=== PATIENT | female | born 1950 | race Caucasian/White ===

== ENCOUNTER → 2019-05-30 08:52 | Outpatient (BNVA) | payer MEDICARE, SELFPAY | PROVIDERS: Family Provider Family Medicine; PCP Family Medicine; Referring Provider Family Medicine; Visit Provider Internal Medicine Rheumatology | DX: M19.90 Unspecified osteoarthritis, unspecified site (principal); Z11.59 Encounter for screening for other viral diseases; Z79.899 Other long term (current) drug therapy; Z11.1 Encounter for screening for respiratory tuberculosis; L60.8 Other nail disorders; Z84.0 Family history of diseases of the skin and subcutaneous tissue; M65.9 Synovitis and tenosynovitis, unspecified; Z72.89 Other problems related to lifestyle | CPT/HCPCS: 86480; 86812; 99204 ==

== ENCOUNTER → 2019-05-30 10:34 | Outpatient (BNVA) | payer MEDICARE, SELFPAY | PROVIDERS: Family Provider Family Medicine; PCP Family Medicine; Referring Provider Family Medicine; Visit Provider Internal Medicine Rheumatology | DX: M19.90 Unspecified osteoarthritis, unspecified site (principal); Z11.59 Encounter for screening for other viral diseases; Z79.899 Other long term (current) drug therapy; L60.8 Other nail disorders; Z84.0 Family history of diseases of the skin and subcutaneous tissue; M65.9 Synovitis and tenosynovitis, unspecified | CPT/HCPCS: 85025 ==

== ENCOUNTER 2019-05-30 11:12 | Outpatient (CLI) | payer MEDICARE, SELFPAY ==
--- NOTE | 2019-05-30 11:18 | XR_ITS ---
WS: [id number] CHEST 2 VIEWS HISTORY: inflammatory arthritis, unspecified osteoarthritis COMPARISON: None available. Lungs: Clear with no abnormality. No pleural effusion or pneumothorax. Cardiac size: Mildly enlarged cardiac silhouette. Mediastinum/Aorta: Mild atherosclerosis aorta. Partially calcified aorta. Bones: Mild osteopenia with increase in thoracic kyphosis. XR/XR chest 2V* [id number] IMPRESSION: Mild cardiomegaly and partially calcified aorta.
== END 2019-05-30 11:13 | disposition home or self-care (01) ==
LOC: RADWPI 11:15
PROVIDERS: Family Provider Family Medicine; PCP Family Medicine; Visit Provider Internal Medicine Rheumatology
DX: Z11.59 Encounter for screening for other viral diseases (principal); M19.90 Unspecified osteoarthritis, unspecified site; I51.7 Cardiomegaly; I70.0 Atherosclerosis of aorta; Z79.899 Other long term (current) drug therapy; Z11.1 Encounter for screening for respiratory tuberculosis; L60.8 Other nail disorders; Z84.0 Family history of diseases of the skin and subcutaneous tissue; M65.9 Synovitis and tenosynovitis, unspecified; Z72.89 Other problems related to lifestyle
CPT/HCPCS: 71046; 80076; 82306; 82565; 85651; 86140; 86704; 86803; 87340

== ENCOUNTER → 2019-06-09 11:57 | Outpatient (BNVA) | payer MEDICARE, SELFPAY | PROVIDERS: Family Provider Family Medicine; PCP Family Medicine; Visit Provider Internal Medicine Rheumatology | DX: L40.59 Other psoriatic arthropathy (principal); Z79.899 Other long term (current) drug therapy; M05.9 Rheumatoid arthritis with rheumatoid factor, unspecified; B35.1 Tinea unguium | CPT/HCPCS: 99214 ==

== ENCOUNTER → 2019-07-11 11:00 | Outpatient (BNVA) | payer MEDICARE, SELFPAY | PROVIDERS: Family Provider Family Medicine; PCP Family Medicine; Visit Provider Internal Medicine Rheumatology | DX: Z79.899 Other long term (current) drug therapy (principal) | CPT/HCPCS: 36415; 80076; 82565; 85025; 86140 ==

== ENCOUNTER → 2019-07-11 11:07 | Outpatient (BNVA) | payer MEDICARE, SELFPAY | PROVIDERS: Family Provider Family Medicine; PCP Family Medicine; Visit Provider Internal Medicine Rheumatology | DX: Z79.899 Other long term (current) drug therapy (principal) | CPT/HCPCS: 85025 ==

== ENCOUNTER → 2019-08-03 13:58 | Outpatient (BNVA) | payer MEDICARE, SELFPAY | PROVIDERS: Family Provider Family Medicine; PCP Family Medicine; Visit Provider Internal Medicine Rheumatology | DX: Z79.899 Other long term (current) drug therapy (principal); M19.90 Unspecified osteoarthritis, unspecified site | CPT/HCPCS: 36415; 80076; 82565; 85025; 85651; 86140 ==

== ENCOUNTER → 2019-09-07 13:50 | Outpatient (BNVA) | payer MEDICARE, SELFPAY | PROVIDERS: Family Provider Family Medicine; PCP Family Medicine; Visit Provider Internal Medicine Rheumatology | DX: Z79.899 Other long term (current) drug therapy (principal) | CPT/HCPCS: 36415; 80076; 82565; 85025; 85651; 86140 ==

== ENCOUNTER 2019-10-24 08:20 | Outpatient (CLI) | payer MEDICARE, SELFPAY ==
--- NOTE | 2019-10-24 08:26 | MR_ITS ---
WS: [id number] MRI LUMBAR SPINE NONCONTRAST HISTORY: LUMBAR SPINE INSTABILITY, CHRONIC LOW BACK PAIN COMPARISON: 10/03/2019 TECHNIQUE: Sagittal and axial multisequence imaging is submitted. Mild increase in thoracic kyphosis. Mild cervical stenosis at C5-6. L5 anterolisthesis by 6.6 mm with unroofing of the disc. Bilateral pars defects are present. Disc spa ce narrowing at L5-S1 is asymmetric with the posterior disc space more significantly narrowed than an teriorly. The remaining disc spaces and vertebral body heights are maintained. Conus terminates normally at L1. L1-L2: Mild annular disc bulging with a LEFT paracentral small disc protrusion causing mild deformity of the thecal sac. Mild LEFT facet joint arthritis. L2-L3: Mild annular disc bulging with no significant stenosis. Slight deformity of the LEFT lateral t hecal sac is probably due to epidural fat. L3-L4: Mild facet joint arthritis. No stenosis. Small amount of fluid in the facet joints bilaterally . L4-L5: Mild annular disc bulging with facet joint arthritis. Ligamentum flavum disease and facet join t arthropathy. Fluid in the facet joints bilaterally. Mild central and LEFT subarticular recess steno sis. L5-S1: Unroofing of the disc with severe facet joint arthritis. Moderate central, subarticular and bi lateral foraminal stenosis. Paravertebral soft tissues are normal. MR/MR lumbar spine wo con* [id number] IMPRESSION: 1. Grade 1 anterolisthesis of L5 on S1 with spondylolysis. 6.6 mm anterolisthe sis of L5 with asymmetric disc space narrowing. 2. Moderate central, subarticular recess and bilateral foraminal stenosis at L 5-S1. 3. Mild central and LEFT subarticular recess stenosis at L4-5 predominantly du e to facet disease. 4. Small LEFT paracentral disc protrusion at L1-2.
== END 2019-10-24 08:21 | disposition home or self-care (01) ==
LOC: RADSHAW 08:24
PROVIDERS: PCP Family Medicine; Visit Provider Family Medicine
DX: M53.2X6 Spinal instabilities, lumbar region (principal); G89.29 Other chronic pain; M47.817 Spondylosis without myelopathy or radiculopathy, lumbosacral region; M48.07 Spinal stenosis, lumbosacral region; M51.26 Other intervertebral disc displacement, lumbar region; M48.061 Spinal stenosis, lumbar region without neurogenic claudication
CPT/HCPCS: 72148

== ENCOUNTER → 2019-10-26 11:56 | Outpatient (BNVA) | payer MEDICARE, SELFPAY | PROVIDERS: PCP Family Medicine; Visit Provider Internal Medicine Rheumatology | DX: L40.50 Arthropathic psoriasis, unspecified (principal); Z79.899 Other long term (current) drug therapy; L60.8 Other nail disorders; M65.9 Synovitis and tenosynovitis, unspecified; Z84.0 Family history of diseases of the skin and subcutaneous tissue; M54.5 Low back pain | CPT/HCPCS: 99214 ==

== ENCOUNTER 2020-11-20 09:25 | Emergency (ER) | payer MEDICARE, SELFPAY ==
[2020-11-20] VITALS (58 sets, daily range): BP systolic 144–206; BP diastolic 85–111; PULSE 86–127; RESP 10–26; TEMP 37; O2SAT 90–100
--- NOTE | 2020-11-20 10:25 | W.ED.NAVMDI ---
HPI - Nausea/Vomiting/Diarrhea General: Chief complaint: Nausea/Vomiting/Diarrhea Stated complaint: N/V POST BACK SURGERY Time Seen by Provider: 11/20/20 09:31 History of Present Illness: HPI Narrative: 70-year-old male presents to the emergency room with complaints of nausea and vomiting. She had a lumbar surgery about 10 days ago that was done at [facility]. She had seen Dr. Valdes for her surgery. Since her surgery she is had nausea and vomiting states she is just generally felt weak she is not been able to participate in any of the home exercises she was given. She is requesting to be admitted to the intermediate from the ER. She denies any fever sweats chills she is not had any urinary retention she is continue to have daily stools although somewhat loose no diarrhea no hematochezia. She is not had any drainage from the wound that she is aware of. MD elicited complaint: nausea and vomiting Onset (ago): day(s) Description of vomiting: food contents and watery Associated nausea: Yes Associated abdominal pain: No Exacerbating factors: none Relieving factors: none Associated symtoms: Reports anxiety, fatigue, anorexia, malaise, myalgias, nausea and weakness; Denies altered mental status, bloating, change in vision, chest pain, cough, diaphoresis, decreased urine output, dizziness, dysuria, epistaxis, fecal incontinence, fevers/chills, headache(s), numbness, palpitations, rash, short of breath, syncope, tenesmus or tinnitus Review of Systems Const: Reports: fatigue and malaise; Denies: diaphoresis Eyes: Denies: change in vision ENMT: Denies: tinnitus or epistaxis Card: Denies: chest pain, palpitations or syncope Resp: Denies: dyspnea, productive cough or non-productive cough GI: Reports: nausea; Denies: bloating or fecal incontinence : Denies: dysuria Skin/Breast: Denies: rash or pruritus Neuro: Denies: headache(s) or dizziness Psych: Reports: anxiety PFSH ED PFSH: Medical History Change in nail appearance Diabetes mellitus Encounter for screening for other viral diseases Family history of psoriasis High risk medication use Hyperlipidemia Hypertension Inflammatory arthritis Osteoporosis Psoriatic arthritis Tenosynovitis Type 2 diabetes mellitus Surgical History H/O hemorrhoidectomy History of hand surgery left History of tubal ligation Family History Sister Merary Denies family history of Rheumatoid arthritis Lupus Social History Smoking and tobacco status: never smoked Alcohol intake: never History of recent travel: No Physical Exam Const: COMMON NORMALS: no acute distress EXAM LIMITATIONS: no altered mental status GENERAL APPEARANCE: cooperative and comfortable ORIENTATION/CONSCIOUSNESS: Yes awake, Yes oriented to person, Yes oriented to place and Yes oriented to time HENMT: COMMON NORMALS: normocephalic, atraumatic and hearing grossly normal bilaterally HEAD & SCALP: normocephalic and atraumatic Neck/C-Spine: COMMON NORMALS: no JVD Resp: COMMON NORMALS: normal respiratory effort, No retractions, No use of accessory muscles and clear to auscultation bilaterally AUSCULTATION: clear to auscultation bilaterally Cardio: COMMON NORMALS: no JVD, regular rate, regular rhythm and No murmurs present (Cardio) RATE: regular rate RHYTHM: regular rhythm GI: COMMON NORMALS: Soft to palpation and No hepatosplenomegaly present AUSCULTATION: Yes normoactive bowel sounds PALPATION: Yes Soft to palpation, No Tenderness to palpation present (GI), No Guarding due to palpation present (GI) and Yes No hepatosplenomegaly present Extremity: COMMON NORMALS: normal to inspection, capillary refill normal, no clubbing, cyanosis or edema, no calf tenderness and no pedal edema Neuro: SENSORIUM/ORIENTATION: Yes oriented to person, Yes oriented to place and Yes oriented to time Skin: COMMON NORMALS: no rashes or lesions noted GENERAL SKIN EXAM: no rashes or lesions noted Course Vital Signs: Vital signs: Vital Signs Temperature 98.6 F 11/20/20 09:30 Pulse Rate 110 H 11/20/20 17:48 Respiratory Rate 16 11/20/20 17:48 Blood Pressure 163/93 11/20/20 16:25 Pulse Oximetry 91 11/20/20 16:25 MDM - Nausea/Vomiting/Diarrhea MDM Narrative: Medical decision making narrative: Patient reported one episode of vomiting however nurse was unaware of it, and not reported to the nurse. She did have significant hypokalemia we are trying to replace that. Did have physical therapy come down and had difficulty getting her up and moving we discussed different options patient wanted us to admit her directly to the intermediate due to the pandemic that is not possible. Reviewed other options but ultimately she prefers to just go home. I had asked her to stay a little longer to ensure that we get her potassium in place she declined and wanted to leave. She also had pretty significant hypertension while she was here did improve the medications we gave we added amlodipine additionally we will start her on supplemental potassium given promethazine use at home she has worsening symptoms return. She did not have any urinary retention or fecal incontinence. Bladder scan was unremarkable. She does have sensation in movement without any radiculopathy to her lower extremities most of her pain is confined to her back and somewhat to the left hip per her report. Lab Data: Labs: Lab Results 11/20/20 11/20/20 11/20/20 Range/Units 10:33 10:43 10:43 WBC 9.9 (4.0-10.0) 10^3/ uL RBC 4.42 (4.1-5.3) 10^6/u L Hgb 12.4 (11.5-15.3) g/dL Hct 39.3 (37.0-47.0) % MCV 88.9 (81-99) fL MCH 28.1 (28.0-34.0) pg MCHC 31.6 (30.0-36.0) g/dL RDW 14.0 (12.1-15.1) % Plt Count 462 H (130-400) 10^3/c mm MPV 8.7 (7.4-10.4) fL Neut % (Auto) 83.2 % Lymph % (Auto) 11.2 % [place] % (Auto) 4.2 % Eos % (Auto) 0.4 % Baso % (Auto) 0.6 % Neut # (Auto) 8.22 H (1.8-7.7) 10^3/u L Lymph # (Auto) 1.1 (0.8-4.8) 10^3/u L [place] # (Auto) 0.4 (0.2-0.9) 10^3/u L Eos # (Auto) 0.0 (0.0-0.8) 10^3/u L Baso # (Auto) 0.1 (0.0-0.1) 10^3/u L Nucleated RBC % (a uto) 0 % Nucleated RBCs # 0.0 /100WBC Specimen Type Sample Site ABG pH (7.35-7.45) ABG pCO2 (35-45) mmHg ABG pO2 (80.0-100.0) mmH g ABG HCO3 (22-26) mmol/L ABG O2 Saturation ABG Base Excess (-2.0-2.0) mmol/ L Fam Test A-a O2 Gradient (5-10) mmHg Hematocrit (37-47) % Hgb O2 Saturation (95-100) % Carboxyhemoglobin (0.4-20.1) %THgb Methemoglobin (0.4-1.5) % Total Hemoglobin (12-16) g/dL Ionized Calcium (1.1-1.4) mmol/L O2 Delivery Device O2 Liters/Min % FiO2 % Manager Eligibility ID Sodium 146 H (136-145) mmol/L Potassium 2.4 L* (3.5-5.1) mmol/L Chloride 96 L (98-107) mmol/L Carbon Dioxide 35 H (22-29) mmol/L Anion Gap 17.4 (5-19) BUN 7 L (8-23) mg/dL Creatinine 0.6 (0.5-0.9) mg/dL GFR Calculation Not Reportable Glucose 122 H (65-115) mg/dL Calculated Osmolal ity 301 H (285-295) mOsm/k g Calcium 8.6 (8.5-10.5) mg/dL Total Bilirubin 0.6 (0.15-1.2) mg/dL AST 15 (0-32) U/L ALT 10 (0-33) U/L Alkaline Phosphata se 146 H (35-105) IU/L Total Protein 7.5 (6.6-8.7) g/dL Albumin 3.7 (3.5-5.2) g/dL Globulin 3.8 (1.3-4.6) g/dL Urine Color Yellow (Yellow) Urine Appearance Sl hazy (CLEAR) Urine pH 6.5 (5-7) Ur Specific Gravit y 1.015 (1.005-1.030) Urine Protein Neg (Negative) Urine Glucose (UA) Norm (Normal) Urine Ketones 2+ H (Negative) Urine Blood 3+ H (Negative) Urine Nitrate Negative (Negative) Urine Bilirubin Neg (Negative) Urine Urobilinogen 4 H (Negative) mg/dL Ur Leukocyte Judith ase Negative (Negative) Urine RBC 10-15 H (0-2) /hpf Urine WBC 0-4 H (0-5) /hpf Ur Squamous Epith Cells 15-25 H (0-5) /hpf Amorphous Sediment Not Reportable Urine Bacteria 1+ H (NONE) /hpf 11/20/20 11/20/20 Range/Units 11:27 12:53 WBC (4.0-10.0) 10^3/ uL RBC (4.1-5.3) 10^6/u L Hgb (11.5-15.3) g/dL Hct (37.0-47.0) % MCV (81-99) fL MCH (28.0-34.0) pg MCHC (30.0-36.0) g/dL RDW (12.1-15.1) % Plt Count (130-400) 10^3/c mm MPV (7.4-10.4) fL Neut % (Auto) % Lymph % (Auto) % [place] % (Auto) % Eos % (Auto) % Baso % (Auto) % Neut # (Auto) (1.8-7.7) 10^3/u L Lymph # (Auto) (0.8-4.8) 10^3/u L [place] # (Auto) (0.2-0.9) 10^3/u L Eos # (Auto) (0.0-0.8) 10^3/u L Baso # (Auto) (0.0-0.1) 10^3/u L Nucleated RBC % (a uto) % Nucleated RBCs # /100WBC Specimen Type Arterial Sample Site Radial, right ABG pH 7.48 H (7.35-7.45) ABG pCO2 51.3 H (35-45) mmHg ABG pO2 78.9 L (80.0-100.0) mmH g ABG HCO3 38.4 H (22-26) mmol/L ABG O2 Saturation 96.5 ABG Base Excess 12.9 H (-2.0-2.0) mmol/ L Fam Test Pos A-a O2 Gradient 11.3 H (5-10) mmHg Hematocrit 39.1 (37-47) % Hgb O2 Saturation 94.3 L (95-100) % Carboxyhemoglobin 1.4 (0.4-20.1) %THgb Methemoglobin 0.9 (0.4-1.5) % Total Hemoglobin 12.7 (12-16) g/dL Ionized Calcium 1.2 (1.1-1.4) mmol/L O2 Delivery Device Nc O2 Liters/Min 3.0 % FiO2 32.0 % Manager Eligibility ID Amh Sodium 144.0 H (136-145) mmol/L Potassium 2.1 L 2.9 L D (3.5-5.1) mmol/L Chloride (98-107) mmol/L Carbon Dioxide (22-29) mmol/L Anion Gap (5-19) BUN (8-23) mg/dL Creatinine (0.5-0.9) mg/dL GFR Calculation Glucose 128.0 H (65-115) mg/dL Calculated Osmolal ity (285-295) mOsm/k g Calcium (8.5-10.5) mg/dL Total Bilirubin (0.15-1.2) mg/dL AST (0-32) U/L ALT (0-33) U/L Alkaline Phosphata se (35-105) IU/L Total Protein (6.6-8.7) g/dL Albumin (3.5-5.2) g/dL Globulin (1.3-4.6) g/dL Urine Color (Yellow) Urine Appearance (CLEAR) Urine pH (5-7) Ur Specific Gravit y (1.005-1.030) Urine Protein (Negative) Urine Glucose (UA) (Normal) Urine Ketones (Negative) Urine Blood (Negative) Urine Nitrate (Negative) Urine Bilirubin (Negative) Urine Urobilinogen (Negative) mg/dL Ur Leukocyte Judith ase (Negative) Urine RBC (0-2) /hpf Urine WBC (0-5) /hpf Ur Squamous Epith Cells (0-5) /hpf Amorphous Sediment Urine Bacteria (NONE) /hpf Discharge Plan Discharge Patient Disposition: Home Clinical Impression: Nausea & vomiting, HTN (hypertension), Hypokalemia Condition: Stable Prescriptions: New amlodipine 10 mg tablet 10 mg PO DAILY Qty: 30 RF: 0 potassium chloride 20 mEq tablet extended release 20 meq PO TID Qty: 30 RF: 0 promethazine 25 mg tablet 25 mg PO Q6H PRN (Reason: nausea and vomiting) Qty: 20 RF: 0 No Action Excedrin Extra Strength 250-250-65 mg tablet 2 tab PO PRN RF: 0 ondansetron HCl 8 mg tablet 8 mg PO Q8H PRN (Reason: Nausea And Vomiting) RF: 0 Trulicity 0.75 mg/0.5 mL pen injector 0.75 mg SUBCUT Q7D RF: 0 Kylah-maritza 8.6 mg tablet 8.6 mg PO BID RF: 0 methocarbamol 750 mg tablet 1,500 mg PO TID PRN (Reason: Muscle Spasm) RF: 0 docusate sodium 100 mg capsule 100 mg PO BID RF: 0 irbesartan 300 mg tablet 300 mg PO BEDTIME RF: 0 oxycodone 5 mg tablet 5 mg PO Q4H PRN (Reason: Pain) RF: 0 Discharge Orders: Discharge ED (Routine); Ordered 11/20/20 Ordered By: Juan Manuel Stout Referrals: Derek Fierro MD [Primary Care Provider] - Discharge Diet: Clear Liquid Discharge Activity: Increase activity as tolerated Patient Instructions: Opioid Safety Activity Restrictions/Additional Instructions: sql manager will make arrangements for home health evaluation. Follow-up with your primary care provider within the next 2 to 3 days to recheck your potassium and your blood pressure. Coding Level of Care Code ED Drop Wire Aligner for Chg Fwd Exam Comprehensive
--- NOTE | 2020-11-20 10:52 | XRR_ITS ---
PROCEDURE INFORMATION: Exam: XR Chest Exam date and time: 11/20/2020 10:52 AM Age: 70 years old Clinical indication: Cough and dyspnea; Additional info: Dyspnea/cough TECHNIQUE: Imaging protocol: XR of the chest. Views: 1 view. COMPARISON: CR XR chest 2V* [id number] 05/30/2019 11:23 AM FINDINGS: Lungs: Left basilar atelectasis noted. Pneumonia should be excluded clinically. Pleural spaces: Unremarkable. No pleural effusion. No pneumothorax. Heart/Mediastinum: Stable cardiomediastinal silhouette. Bones/joints: Unremarkable. XR/XR chest 1V portable [id number] IMPRESSION: Left basilar atelectasis versus pneumonia, clinical correlation is recommended.
[2020-11-20 11:03] LABS: Basophils # 0.1 10^3/uL (0.0-0.1); Basophils % 0.6 %; Eosinophils % 0.4 %; Hematocrit 39.3 % (37.0-47.0); Hemoglobin 12.4 g/dL (11.5-15.3); Lymphocytes # 1.1 10^3/uL (0.8-4.8); Lymphocytes % 11.2 %; Mean Corpuscular HGB Conc 31.6 g/dL (30.0-36.0); Mean Corpuscular Hemoglobin 28.1 pg (28.0-34.0); Mean Corpuscular Volume 88.9 fL (81-99); Mean Platelet Volume 8.7 fL (7.4-10.4); Monocytes # 0.4 10^3/uL (0.2-0.9); Monocytes % 4.2 %; Neutrophils # 8.22 10^3/uL (1.8-7.7); Neutrophils % 83.2 %; Nucleated Red Blood Cells % 0 %; Platelet Count 462 10^3/cmm (130-400); Red Blood Count 4.42 10^6/uL (4.1-5.3); White Blood Count 9.9 10^3/uL (4.0-10.0)
[2020-11-20 11:08] LABS: Urine Appearance SL Hazy (CLEAR); Urine Color Yellow (Yellow)
[2020-11-20 11:09] LABS: Protein Urine Neg (Negative); Specific Gravity, Urine 1.015 (1.005-1.030); pH Urine 6.5 (5-7)
[2020-11-20 11:10] LABS: Add Urine Microscopic? YES; Bilirubin Urine Neg (Negative); Blood Urine 3+ (Negative); Glucose Urine UA Norm (Normal); Ketones Urine 2+ (Negative); Leukocyte Esterase Urine Negative (Negative); Nitrate Urine Negative (Negative); Urobilinogen Urine 4 mg/dL (Negative)
[2020-11-20 11:11] LABS: Squamous Epithelial Cell Urine 15-25 /hpf (0-5)
--- NOTE | 2020-11-20 11:11 | CT_ITS ---
WS: [id number] CT CHEST ANGIOGRAPHY WITH REFORMATS HISTORY: dyspnea TECHNIQUE: Contiguous axial images are obtained through the chest during arterial injection of intrav enous contrast. Images are reconstructed to evaluate the pulmonary arteries. MIP imaging also reviewe d. All CT scans at [facility] use at least one of these dose optimization techniques: aut omated exposure control; mA and/or kV adjustment per patient size (includes targeted exams where dose is matched to clinical indication); or iterative reconstruction. CONTRAST: Omnipaque 350; 95 mL IV. DLP: 505.9 mGy.cm COMPARISON: None available. Very good opacification of the pulmonary arteries. There are no filling defects or pulmonary embolism identified. No RIGHT heart strain. Pulmonary artery size is normal. Mild atherosclerosis of the aort a. No aneurysm. No pericardial or pleural effusions. Mild pulmonary hyperinflation with mild peripheral interstitial thickening. No dense areas of consoli dation or mass. No mediastinal or hilar adenopathy. Large hiatal hernia. Mild hepatic steatosis. Moderately distended gallbladder. No adjacent inflammati on. Bones are osteopenic. No osteoblastic or osteolytic disease. CT/CT angio chest PE protcl [id number] IMPRESSION: 1. No pulmonary embolism. 2. No pneumonia. 3. Mildly hydropic gallbladder without adjacent inflammation. May be on the ba sis of prolonged fasting. 4. Large hiatal hernia.
[2020-11-20 11:13] LABS: Add Urine Culture? No; Bacteria Urine 1+ /hpf; WBC Urine 0-4 /hpf (0-5)
[2020-11-20 11:14] LABS: Alanine Aminotransferase 10 U/L (0-33); Albumin Level 3.7 g/dL (3.5-5.2); Alkaline Phosphatase 146 IU/L (35-105); Anion Gap 17.4 (5-19); Aspartate Amino Transferase 15 U/L (0-32); Blood Urea Nitrogen 7 mg/dL (8-23); Calcium 8.6 mg/dL (8.5-10.5); Carbon Dioxide 35 mmol/L (22-29); Chloride 96 mmol/L (98-107); Globulin 3.8 g/dL (1.3-4.6); Glucose 122 mg/dL (65-115); Osmolality Calculated 301 mOsm/kg (285-295); Sodium 146 mmol/L (136-145); Total Bilirubin 0.6 mg/dL (0.15-1.2); Total Protein 7.5 g/dL (6.6-8.7)
[2020-11-20 11:19] LABS: Potassium 2.4 mmol/L (3.5-5.1)
[2020-11-20 11:38] LABS: ABG PCO2 51.3 mmHg (35-45); ABG PH Result 7.48 (7.35-7.45); Alveolar-Arterial Oxygen Gradi 11.3 mmHg (5-10); Arterial Blood Gas Hematocrit 39.1 % (37-47); Base Excess ABG 12.9 mmol/L (-2.0-2.0); Blood Gas Allen Test Pos; Blood Gas Operator Identificat AMH; Blood Gas Sample Site Radial, right; Blood Gas Sample Type Arterial; Carboxyhemoglobin 1.4 %THgb (0.4-20.1); HCO3 ABG 38.4 mmol/L (22-26); HGB O2 Sat 94.3 % (95-100); Ionized Calcium Level - ABG 1.2 mmol/L (1.1-1.4); Methemoglobin 0.9 % (0.4-1.5); Oxygen Device NC; Oxygen Saturation ABG 96.5; PO2 ABG 78.9 mmHg (80.0-100.0); Potassium Level - ABG 2.1 mmol/L (3.5-5.0); Total Hemoglobin 12.7 g/dL (12-16)
[2020-11-20] MEDS: sodium chloride 0.9% 1,000 ML 999 ML IV (11:38)
[2020-11-20] MEDS: ondansetron 2 mg/ML SDV 2 mL 4 MG IVP (11:42)
[2020-11-20] MEDS: potassium chloride oral liq 20 mEq/15 mL UDC 80 MEQ PO (11:52)
[2020-11-20] MEDS: iohexol 350 mg/mL 100 mL Btl IV (12:19)
[2020-11-20] MEDS: hyDRALAzine 20 mg/mL INJ 1 mL 10 MG IVP (12:33)
[2020-11-20] MEDS: amlodipine 10 mg Tablet PO (12:33)
[2020-11-20 13:39] LABS: Potassium 2.9 mmol/L (3.5-5.1)
[2020-11-20] MEDS: morphine 4 mg/mL SDV 1 mL IVP (14:58)
[2020-11-20] MEDS: potassium chloride ER 20 mEq Tablet 60 MEQ PO (15:14)
== END 2020-11-20 17:49 | disposition home or self-care (01) ==
PROVIDERS: Emergency Provider Family Medicine; PCP Family Medicine
DX: R11.2 Nausea with vomiting, unspecified (principal); I10 Essential (primary) hypertension; E87.6 Hypokalemia; E11.9 Type 2 diabetes mellitus without complications; E78.5 Hyperlipidemia, unspecified
CPT/HCPCS: 36415; 36600; 51798; 71045; 71275; 80051; 80053; 81001; 82330; 82805; 84132; 85025; 96361; 96374; 96375; 97161; 97530; 99284; J0360; J2270; J2405; J7030; Q9967

== ENCOUNTER → 2022-06-10 12:00 | Outpatient (BNVA) | payer MEDICARE, SELFPAY | PROVIDERS: PCP Family Medicine; Visit Provider Orthopaedic Surgery | DX: S52.601A Unspecified fracture of lower end of right ulna, initial encounter for closed fracture (principal); W18.39XA Other fall on same level, initial encounter | CPT/HCPCS: 25530; 73110; 99024 ==

== ENCOUNTER 2022-06-10 14:37 | Outpatient (CLI) | payer MEDICARE, SELFPAY | END 2022-06-10 14:38 | disposition home or self-care (01) | LOC: SPT 14:38 | PROVIDERS: PCP Family Medicine; Visit Provider Orthopaedic Surgery | DX: Z46.89 Encounter for fitting and adjustment of other specified devices (principal); S52.691D Other fracture of lower end of right ulna, subsequent encounter for closed fracture with routine healing; X58.XXXD Exposure to other specified factors, subsequent encounter | CPT/HCPCS: 97760; L3982 ==

== ENCOUNTER → 2022-07-08 11:21 | Outpatient (BNVA) | payer MEDICARE, SELFPAY | PROVIDERS: PCP Family Medicine; Visit Provider Orthopaedic Surgery | DX: S52.601D Unspecified fracture of lower end of right ulna, subsequent encounter for closed fracture with routine healing (principal); X58.XXXD Exposure to other specified factors, subsequent encounter | CPT/HCPCS: 73110; 99024 ==

== ENCOUNTER 2022-07-08 15:26 | Outpatient (CLI) | payer MEDICARE, SELFPAY | END 2022-07-08 15:27 | disposition home or self-care (01) | LOC: SPT 15:27 | PROVIDERS: PCP Family Medicine; Visit Provider Orthopaedic Surgery | DX: Z46.89 Encounter for fitting and adjustment of other specified devices (principal); S52.691D Other fracture of lower end of right ulna, subsequent encounter for closed fracture with routine healing; X58.XXXD Exposure to other specified factors, subsequent encounter | CPT/HCPCS: 97760; L3908 ==

== ENCOUNTER → 2022-08-12 11:00 | Outpatient (BNVA) | payer MEDICARE, SELFPAY | PROVIDERS: PCP Family Medicine; Visit Provider Orthopaedic Surgery | DX: S52.601D Unspecified fracture of lower end of right ulna, subsequent encounter for closed fracture with routine healing (principal); W18.39XD Other fall on same level, subsequent encounter | CPT/HCPCS: 73110; 99024 ==

== ENCOUNTER → 2022-09-09 10:42 | Outpatient (BNVA) | payer MEDICARE, SELFPAY | PROVIDERS: PCP Family Medicine; Visit Provider Orthopaedic Surgery | DX: S52.601D Unspecified fracture of lower end of right ulna, subsequent encounter for closed fracture with routine healing; X58.XXXD Exposure to other specified factors, subsequent encounter | CPT/HCPCS: 73110; 99024 ==